=== PATIENT | female | born 1940 | race Caucasian/White ===

== ENCOUNTER 2017-01-26 11:36 | Inpatient (IN) ==
[2017-01-26] MEDS ORDERED: Acetaminophen 325 MG TABLET PO PRN (12:23)
[2017-01-26] MEDS ORDERED: 0.9 % Sodium Chloride 1,000 ML IVC SCH (12:30)
[2017-01-26 12:52] LABS: Basophils % 0.3 %; Hematocrit 38.8 % (35.3-44.9); Immature Granulocytes % 1.8 % (0-4); Lymphocytes % 26.3 %; Mean Corpuscular HGB Conc 30.9 g/dL (31.6-35.5); Mean Corpuscular Hemoglobin 29.9 pg (28.0-33.3); Mean Corpuscular Volume 96.8 fL (83.0-100.0); Mean Platelet Volume 11.1 fL (9.4-12.4); Monocytes # 0.7 K/mcL (0.0-1.3); Monocytes % 17.6 %; Neutrophils # 2.1 K/mcL (1.6-8.9); Platelet Count 143 K/mcL (140-400); Red Blood Count 4.01 M/mcL (3.82-4.97); Red Cell Distribution Width 13.9 % (11.5-14.5)
[2017-01-26 13:04] LABS: INR 1.1; Prothrombin Time 11.8 Seconds (9.4-12.1)
[2017-01-26 13:14] LABS: Alanine Aminotransferase 21 Units/L (0-55); Albumin 3.5 g/dL (3.5-5.0); Albumin/Globulin Ratio 1.3 (1.1-2.2); Alkaline Phosphatase 65 Units/L (38-126); Aspartate Amino Transferase 21 Units/L (5-34); BUN/Creatinine Ratio 15 (6-26); Bilirubin,Total 0.7 mg/dL (0.2-1.2); Blood Urea Nitrogen 12 mg/dL (7-20); Calcium 8.9 mg/dL (8.6-10.8); Carbon Dioxide 28 mEq/L (19-29); Chloride 110 mEq/L (98-109); Globulin 2.8 g/dL (2.4-3.5); Glucose 96 mg/dL (70-99); Osmolality,Calculated 296 (280-300); Sodium 143 mEq/L (136-145); Total Protein 6.3 g/dL (6.0-8.3); eGFR For African Americans > 60 (> 60); eGFR For Non-African Americans > 60 (> 60)
[2017-01-26 13:34] LABS: Carcinoembryonic Antigen 1.3 ng/mL (0-5.0)
--- NOTE | 2017-01-26 14:47 | General Surg History&Physical ---
<Kelvin Dickens - Last Filed: 01/26/17 15:46> Date of Encounter: 01/26/17 Time of Encounter: 14:47 Assessment and Plan (1) Colonic mass Current Visit: Yes Status: Acute The assessment and plan as outlined above was discussed with the patient and/or family members who expressed understanding and agreement. All questions were answered. - Symptomatic mass with constipation and bright red blood per rectum - Colonoscopy as outpatient this AM found right sided mass in colon. - Pt is scheduled for right sided hemicolectomy tomorrow evening. Consent obtained. - Clear liquids until midnight then NPO - CT abdomen/pelvis with oral and IV contrast pending - CEA level and pathology pending from colonoscopy. (2) Anxiety Current Visit: Yes Status: Acute The assessment and plan as outlined above was discussed with the patient and/or family members who expressed understanding and agreement. All questions were answered. - Pt appears calm and understanding. No complaints at this time. - Continue home celexa. History of Present Illness Chief complaint: Abnormal colonoscopy, hematochezia HPI: Ms. Dill is a 76 year old female with no significant past medical history presents to [facility] from outpatient colonoscopy office for abnormal colonoscopy results. Patient states she is been experiencing bright red blood per rectum for approximately past 4 months however she was unable to obtain a colonoscopy previous to this. Last colonoscopy was approximately 10 years ago. She denies any symptoms of nausea, vomiting, abdominal pain, diarrhea however does admit to some constipation which was partially relieved with MiraLAX and her morning coffee. She states blood per rectum was always bright red however was not present with every bowel movement. She is scheduled for open right hemicolectomy with Dr. Lewis tomorrow evening. Informed consent was obtained and all questions from patient and son, who is present at bedside, were answered. Past Med Surg Social Fam HX - Past Medical History Medical history: hyperlipidemia, venous stasis, other Psychiatric history: anxiety - Past Surgical History Surgical History: cataract, knee replacement, vascular surgery - Social History Smoking Status: Former smoker Smokeless Tobacco Status: No Alcohol use: none Drug use: none Medications and Allergies Aspirin [Lo-Dose Aspirin EC] 81 mg PO DAILY 11/18/16 [History] Citalopram [CeleXA] 20 mg PO DAILY 11/18/16 [History] Multivitamin/Iron/Folic Acid [Centrum Complete Multivit Tab] 1 each PO DAILY [History] Ascorbic Acid [Vitamin C] 250 mg PO DAILY 01/26/17 [History] Ascorbic Acid/Vitamin E/Biotin [Hair Skin Nails-Biotin Gummies] 1 tab PO DAILY 01/26/17 [History] 3 Allergy/AdvReac Type Severity Reaction Status Date / Time No Known Allergies Allergy Verified 01/26/17 09:36 Review of Systems All systems PM: A 10-system review of systems was performed and is negative for pertinent findings except as documented above in the HPI. - Constitutional no chills, no fever(s), no weight loss - Cardiovascular no chest pain, no dyspnea, no dyspnea on exertion, no lightheadedness, no pedal edema - Respiratory no cough, no dyspnea, no dyspnea on exertion - Gastrointestinal change in bowel habits, constipation, hematochezia, no abdominal pain, no change in stool character, no coffee ground emesis, no diarrhea, no early satiety, no fecal incontinence, no hematemesis, no loose stools, no melena, no nausea, no vomiting - Genitourinary Genitourinary: no dysuria - Neurological no numbness, no tingling, no weakness General Surgery Exam Initial Vital Signs Temp Pulse Resp BP Pulse Ox 97.6 F 59 18 103/57 96 01/26/17 12:22 01/26/17 12:22 01/26/17 12:22 01/26/17 12:22 01/26/17 12:22 - General physical appearance well developed, well nourished, no distress, obese - Respiratory normal expansion, normal respiratory effort, clear to auscultation - Cardiovascular Cardiovascular exam: Present: RRR, no murmurs/rubs/gallops - Abdomen Abdomen general surgery: Present: bowel sounds present, soft, non tender, masses (RLQ) - Integumentary Integumentary general surgery: Present: warm and dry, no abnormal pigmentation Results - Labs 01/26/17 12:43 01/26/17 12:43 Abnormal lab results WBC 3.9 K/mcL (4.3-11.1) L 01/26/17 12:43 MCHC 30.9 g/dL (31.6-35.5) L 01/26/17 12:43 Chloride 110 mEq/L (98-109) H 01/26/17 12:43 Diabetes panel 01/26/17 Range/Units 12:43 Sodium 143 (136-145) mEq/L Potassium 4.0 (3.5-4.5) mEq/L Chloride 110 H (98-109) mEq/L Carbon Dioxide 28 (19-29) mEq/L BUN 12 (7-20) mg/dL Creatinine 0.79 (0.57-1.11) mg/dL Glucose 96 (70-99) mg/dL Calcium 8.9 (8.6-10.8) mg/dL AST 21 (5-34) Units/L ALT 21 (0-55) Units/L Alkaline Phosphatase 65 (38-126) Units/L Albumin 3.5 (3.5-5.0) g/dL Calcium panel 01/26/17 Range/Units 12:43 Calcium 8.9 (8.6-10.8) mg/dL Albumin 3.5 (3.5-5.0) g/dL Pituitary panel 01/26/17 Range/Units 12:43 Sodium 143 (136-145) mEq/L Potassium 4.0 (3.5-4.5) mEq/L Chloride 110 H (98-109) mEq/L Carbon Dioxide 28 (19-29) mEq/L BUN 12 (7-20) mg/dL Creatinine 0.79 (0.57-1.11) mg/dL Glucose 96 (70-99) mg/dL Calcium 8.9 (8.6-10.8) mg/dL Adrenal panel 01/26/17 Range/Units 12:43 Sodium 143 (136-145) mEq/L Potassium 4.0 (3.5-4.5) mEq/L Chloride 110 H (98-109) mEq/L Carbon Dioxide 28 (19-29) mEq/L BUN 12 (7-20) mg/dL Creatinine 0.79 (0.57-1.11) mg/dL Glucose 96 (70-99) mg/dL Calcium 8.9 (8.6-10.8) mg/dL Total Bilirubin 0.7 (0.2-1.2) mg/dL AST 21 (5-34) Units/L ALT 21 (0-55) Units/L Alkaline Phosphatase 65 (38-126) Units/L Albumin 3.5 (3.5-5.0) g/dL All other labs normal. <Brian Lewis - Last Filed: 01/27/17 07:34> Date of Encounter: 01/26/17 Assessment and Plan (1) Colonic mass Current Visit: Yes Status: Acute The assessment and plan as outlined above was discussed with the patient and/or family members who expressed understanding and agreement. All questions were answered. History of Present Illness HPI: Ms. Dill is a 76 year old female Review of Systems All systems PM: A 10-system review of systems was performed and is negative for pertinent findings except as documented above in the HPI. General Surgery Exam Initial Vital Signs Temp Pulse Resp BP Pulse Ox 97.6 F 59 18 103/57 96 01/26/17 12:22 01/26/17 12:22 01/26/17 12:22 01/26/17 12:22 01/26/17 12:22 Results - Labs 01/26/17 12:43 01/26/17 12:43 Abnormal lab results WBC 3.9 K/mcL (4.3-11.1) L 01/26/17 12:43 MCHC 30.9 g/dL (31.6-35.5) L 01/26/17 12:43 Chloride 110 mEq/L (98-109) H 01/26/17 12:43 Diabetes panel 01/26/17 Range/Units 12:43 Sodium 143 (136-145) mEq/L Potassium 4.0 (3.5-4.5) mEq/L Chloride 110 H (98-109) mEq/L Carbon Dioxide 28 (19-29) mEq/L BUN 12 (7-20) mg/dL Creatinine 0.79 (0.57-1.11) mg/dL Glucose 96 (70-99) mg/dL Calcium 8.9 (8.6-10.8) mg/dL AST 21 (5-34) Units/L ALT 21 (0-55) Units/L Alkaline Phosphatase 65 (38-126) Units/L Albumin 3.5 (3.5-5.0) g/dL Calcium panel 01/26/17 Range/Units 12:43 Calcium 8.9 (8.6-10.8) mg/dL Albumin 3.5 (3.5-5.0) g/dL Pituitary panel 01/26/17 Range/Units 12:43 Sodium 143 (136-145) mEq/L Potassium 4.0 (3.5-4.5) mEq/L Chloride 110 H (98-109) mEq/L Carbon Dioxide 28 (19-29) mEq/L BUN 12 (7-20) mg/dL Creatinine 0.79 (0.57-1.11) mg/dL Glucose 96 (70-99) mg/dL Calcium 8.9 (8.6-10.8) mg/dL Adrenal panel 01/26/17 Range/Units 12:43 Sodium 143 (136-145) mEq/L Potassium 4.0 (3.5-4.5) mEq/L Chloride 110 H (98-109) mEq/L Carbon Dioxide 28 (19-29) mEq/L BUN 12 (7-20) mg/dL Creatinine 0.79 (0.57-1.11) mg/dL Glucose 96 (70-99) mg/dL Calcium 8.9 (8.6-10.8) mg/dL Total Bilirubin 0.7 (0.2-1.2) mg/dL AST 21 (5-34) Units/L ALT 21 (0-55) Units/L Alkaline Phosphatase 65 (38-126) Units/L Albumin 3.5 (3.5-5.0) g/dL All other labs normal. - Attending Attestation I examined this patient and my medical decision-making was reviewed with the Resident Physician. I agree with the documented findings, disposition and treatment plan as described except to the extent set forth below. The patient was seen and evaluated today. I personally performed colonoscopy today. She has not actively bleeding cecal mass. I obtained biopsies, however , the bleeding mass will need to be removed to stop the hemorrhage. She is admitted for right hemicolectomy. CAT scan is ordered CEA was ordered Brian Lewis MD FACS
--- NOTE | 2017-01-26 19:08 | Anesthesia Evaluation PreOp ---
Date of Encounter: 01/26/17 Time of Encounter: 19:44 - Past History Planned Operation: Right Colectomy Cardiac History: Hyperlipidemia Pulmonary History: Former smoker (quit 25 years ago) NEWS PHOTOGRAPHER History: Denies Any Significant HX Other Medical History: Denies Any Significant HX Anesthesia History: No Prior Anesthetic Complications, Past Anesthesia Alcohol Use: rarely Drug use: none Medications and Allergies Aspirin [Lo-Dose Aspirin EC] 81 mg PO DAILY 11/18/16 [History] Citalopram [CeleXA] 20 mg PO DAILY 11/18/16 [History] Multivitamin/Iron/Folic Acid [Centrum Complete Multivit Tab] 1 each PO DAILY [History] Ascorbic Acid [Vitamin C] 250 mg PO DAILY 01/26/17 [History] Ascorbic Acid/Vitamin E/Biotin [Hair Skin Nails-Biotin Gummies] 1 tab PO DAILY 01/26/17 [History] 3 Allergy/AdvReac Type Severity Reaction Status Date / Time No Known Allergies Allergy Verified 01/26/17 09:36 - Meds/Allergy Pre-op Review Medications Reviewed: Yes Allergies Reviewed: Yes Beta Blockers on Current Med List: No Anesthesia Results - Labs 01/26/17 12:43 01/26/17 12:43 - Imaging EKG: report reviewed (11/19/2016 SINUS RHYTHM WITH FREQUENT SUPRAVENTRICULAR PREMATURE COMPLEXES MARKED LEFT AXIS DEVIATION [QRS AXIS < -30] PATTERN CONSISTENT WITH PULMONARY DISEASE MODERATE INTRAVENTRICULAR CONDUCTION DELAY [ 110+ ms QRS DURATION] MODERATE VOLTAGE CRITERIA FOR LVH, CONSIDER NORMAL VARIANT [MEETS CRITERIA IN ONE OF: R(aVL), S(V1), R(V5), R(V5/V6)+S(V1)] NONSPECIFIC T-WAVE ABNORMALITY) Additional studies: 12/20/2016 Echo Impressions: LVEF 55%. Mild concentric left ventricular hypertrophy. Mild left ventricular diastolic dysfunction. Normal right ventricular structure and function. Mild mitral regurgitation. No pulmonary hypertension. There is a trivial pericardial effusion present without tamponade. Anesthesia Exam Vital Signs/O2 Sat, Most Current Temp Pulse Resp BP Pulse Ox 97.6 F 59 18 103/57 96 01/26/17 12:22 01/26/17 12:22 01/26/17 12:22 01/26/17 12:22 01/26/17 16:45 Height: 5'5''/1.65 m Weight: 193 lbs/87.7 kg Pain Scale: 0 Pain Scale Used: Numeric (1 - 10) - HEENT Pupil (Motor): EOMI Mallampati: II Teeth: Normal, Missing Denture Type: Upper: Complete Oral Opening: Greater than 3 - NEWS PHOTOGRAPHER LOC: Oriented NEWS PHOTOGRAPHER Motor: Normal RUE, Normal LUE, Normal RLE, Normal LLE, Normal Face NEWS PHOTOGRAPHER Sensory: Normal: RUE, LUE, RLE, LLE, Face - Cardiac Rhythm: Regular Murmur: None - Pulmonary Breath Sounds: bilateral Clear Respiratory Effort: Symmetrical Anesthesia Assess/Plan ASA Score: 2 Modified [place] Scale for Level of Consciousness: Cooperative, oriented, and tranquil Anesthetic Plan: General Monitoring Plan: Standard Monitors Recovery Plan: PACU
[2017-01-27] MEDS ORDERED: Pantoprazole 40 MG VIAL IVP SCH (09:00)
[2017-01-27] MEDS ORDERED: *HR* FentaNYL (PF) 100 MCG/2 ML VIAL ONE (18:42)
[2017-01-27] MEDS ORDERED: *HR* Propofol 200 MG/20 ML VIAL IVP ONE (18:43)
[2017-01-27] MEDS ORDERED: Lidocaine -MPF 2% 2 ML VIAL ONE (18:44)
[2017-01-27] MEDS ORDERED: *HR* Rocuronium Bromide 50 MG/5 ML VIAL ONE (18:44)
[2017-01-27] MEDS ORDERED: Lidocaine -MPF 4% 5 ML AMPUL ONE (18:45)
[2017-01-27] MEDS ORDERED: CefOXitin 2,000 MG VIAL ONE (19:20)
[2017-01-27] MEDS ORDERED: Neostigmine Methylsulfate 3 MG/3 ML SYRINGE ONE (20:11)
[2017-01-27] MEDS ORDERED: Dexamethasone 4 MG/ML VIAL ONE (20:11)
[2017-01-27] MEDS ORDERED: Ondansetron 4 MG/2 ML VIAL ONE (20:11)
[2017-01-27] MEDS ORDERED: *HR* Morphine 10 MG/ML VIAL ONE (20:16)
--- NOTE | 2017-01-27 20:27 | Operative Note ---
Date of procedure: 01/27/17 Pre-op diagnosis: Right colon cancer Post-op diagnosis: same Procedure: Right hemicolectomy Anesthesia: PRASHANTH Surgeon: Brian Lewis Estimated blood loss (cc): 20 Specimen: Right colon Condition: stable Disposition: PACU Procedure in Detail: After informed consent the patient was taken to the major operating suite and placed in the supine position given adequate general anesthetic. The abdomen is prepped and draped in sterile fashion utilizing ChloraPrep standard draping techniques. Timeout was taken. The patient was identified. I made a vertical midline incision and entered the abdomen. I was able to feel the tumor just above the ileocecal valve and the right colon. Mobilize the entire right colon. I divided the ileocolic ligament area I divided the colon with MORENO on the right side of the middle colic artery about penitentiary between the hepatic flexure middle colic artery. I divided the small bowel about 6 cm proximal to the ileocecal valve. The mesentery of the right colon was divided between clamps and hemostatic ligatures. Using a dirty technique feel, functional end- to-end anastomosis was created using MORENO. The resulting enterotomy was closed with a TA 60. I circumferentially reinforced the anastomosis with interrupted 3 -0 silk. I closed the opening in the mesentery with interrupted 2-0 silk. This gave an excellent technical result. Blood loss 20 mL. The colon was returned to its anatomic position. I irrigated with copious amounts of antibiotic containing solution. The midline was closed with looped 0 PDS. The skin was closed with interrupted Vicryl and skin clips. She tolerated the procedure well.
[2017-01-27] MEDS: *HR* HYDROmorphone (PF) 1 MG/ML SYRINGE IVP PRN ×2 (20:43→20:55)
[2017-01-27] MEDS: Ondansetron 4 MG/2 ML VIAL IVP PRN (20:44)
[2017-01-28] MEDS: Ondansetron 4 MG/2 ML VIAL IVP PRN (06:26)
[2017-01-28] MEDS ORDERED: *HR* HYDROmorphone (PF) 1 MG/ML SYRINGE IVP PRN ×4 (06:50→13:07)
[2017-01-28 07:00] LABS: Basophils % 0.1 %; Hematocrit 39.1 % (35.3-44.9); Hemoglobin 11.9 g/dL (11.5-15.4); Lymphocytes # 0.4 K/mcL (0.6-4.6); Lymphocytes % 2.5 %; Mean Corpuscular HGB Conc 30.4 g/dL (31.6-35.5); Mean Corpuscular Hemoglobin 29.9 pg (28.0-33.3); Mean Corpuscular Volume 98.2 fL (83.0-100.0); Mean Platelet Volume 11.1 fL (9.4-12.4); Monocytes # 2.3 K/mcL (0.0-1.3); Monocytes % 14.7 %; Neutrophils # 12.5 K/mcL (1.6-8.9); Platelet Count 133 K/mcL (140-400); Red Blood Count 3.98 M/mcL (3.82-4.97); Red Cell Distribution Width 13.8 % (11.5-14.5); Segmented Neutrophils % 81.7 %
[2017-01-28] MEDS ORDERED: *HR* Metoprolol 5 MG/5 ML VIAL IVP PRN (07:07)
[2017-01-28] MEDS ORDERED: Ondansetron 4 MG/2 ML VIAL IVP PRN ×2 (07:07)
[2017-01-28] MEDS ORDERED: *HR* OxyCODONE/APAP 5/325 TABLET PO PRN (07:07)
[2017-01-28] MEDS ORDERED: 0.9 % Sodium Chloride 1,000 ML IVC SCH (07:07)
[2017-01-28] MEDS ORDERED: Acetaminophen 325 MG TABLET PO PRN (07:07)
[2017-01-28 07:10] LABS: BUN/Creatinine Ratio 18 (6-26); Blood Urea Nitrogen 15 mg/dL (7-20); Calcium 8.7 mg/dL (8.6-10.8); Carbon Dioxide 19 mEq/L (19-29); Chloride 108 mEq/L (98-109); Glucose 176 mg/dL (70-99); Osmolality,Calculated 299 (280-300); Potassium 4.1 mEq/L (3.5-4.5); Sodium 142 mEq/L (136-145); eGFR For African Americans > 60 (> 60); eGFR For Non-African Americans > 60 (> 60)
[2017-01-28] MEDS: 0.9 % Sodium Chloride 1,000 ML IVC SCH ×2 (08:38→20:24)
[2017-01-28] MEDS: cefOXitin 2,000 MG in Water for inj. (sterile) 10 ML IVP SCH ×2 (08:40→10:09)
[2017-01-28] MEDS: *HR* Heparin 5,000 UNIT/ML VIAL SQ SCH ×2 (08:41→17:29)
[2017-01-28] MEDS: Pantoprazole 40 MG VIAL IVP SCH (08:41)
[2017-01-28] MEDS ORDERED: Pantoprazole 40 MG VIAL IVP SCH (09:00)
--- NOTE | 2017-01-28 09:29 | General Surgery Progress Note ---
<Kelvin Dickens - Last Filed: 01/28/17 10:47> Date of Encounter: 01/28/17 Time of Encounter: 09:25 - Assessment and Plan (1) Colonic mass Current Visit: Yes Status: Acute - Post operative day #1 following open right colon resection. - Minimal pain and nausea, however relived with Zofran and pain meds. - Otherwise healing well. - Bowel sounds absent, continue NPO and supportive care - No NG tube in place, will add only if pt experiences significant nausea or vomiting. - Afrebile. VSS. (2) Anxiety Current Visit: Yes Status: Acute - Well controlled. - Continue home celexa. (3) Leukocytosis Current Visit: Yes Status: Acute WBC of 15.3 this AM - This is an expected rise following surgery and reactive in nature - Will continue to monitor for now - Remainder of vitals wnl. No infectious etiology suspected at this time. Qualifiers: Leukocytosis type: unspecified Qualified Code(s): D72.829 - Elevated white blood cell count, unspecified (4) Pre-diabetes Current Visit: Yes Status: Acute - BS of 176 this AM. - Most recent A1c of 5.4%, will repeat stat - No previous diagnosis of DM - Pt is NPO following surgery. - Will start low dose SSI (5) DVT prophylaxis Current Visit: Yes Status: Acute - Heparin 5000 units subq q12hr Subjective Patient reports: no new complaints, pain is less, voiding w/o difficulty, no flatus, no bowel movement, afebrile Narrative: Ms. Dill is post operative day #1 following right colectomy for colon mass. She states she is overall feeling well. Pain is present, but manageable. She describes it as an ache. Her main concern this morning was that she wants to eat. We stressed that she could not eat until bowel sounds returned. Mild nausea without vomiting and no complaints of SOB but nursing noted desaturation during the night which responded to 3L of O2. Objective Vital Signs - Last 8 Hours Temp Pulse Resp BP Pulse Ox 01/28/17 06:40 98.2 F 102 16 111/66 95 01/28/17 03:27 98.1 F 71 17 129/69 93 01/28/17 01:50 98.5 F 68 16 125/71 86 Intake and Output 01/27/17 01/28/17 01/28/17 23:59 07:59 15:59 Intake Total 0 / 0 0 / 0 Output Total 350 / 350 Balance -20 / -20 -350 / -350 Intake: IV Fluids Mefoxin 2,000 MG In Water for inj. (sterile) 10 ML @ 150 mls/ hr IVP Q8HR [facility] Rx#:[id number] Oral 0 / 0 0 0 Output: Urine 350 / 350 Estimated Blood Loss Other: Meal Dinner NPO Weight 88.5 kg Blood Glucose* 135 171 Patient Weight 01/28/17 23:59 Weight 88.5 kg - General physical appearance well developed, well nourished, no distress - Respiratory normal expansion, normal respiratory effort, clear to auscultation - Cardiovascular Cardiovascular exam: Present: RRR, no murmurs/rubs/gallops - Abdomen Abdomen: Present: soft. Absent: bowel sounds present Abdominal Tenderness: diffusely - Incision Incision: Present: clean and dry, intact - Labs 01/28/17 06:53 01/28/17 06:53 Diabetes panel 01/28/17 Range/Units 06:53 Sodium 142 (136-145) mEq/L Potassium 4.1 (3.5-4.5) mEq/L Chloride 108 (98-109) mEq/L Carbon Dioxide 19 (19-29) mEq/L BUN 15 (7-20) mg/dL Creatinine 0.84 (0.57-1.11) mg/dL Glucose 176 H (70-99) mg/dL Calcium 8.7 (8.6-10.8) mg/dL Calcium panel 01/28/17 Range/Units 06:53 Calcium 8.7 (8.6-10.8) mg/dL Pituitary panel 01/28/17 Range/Units 06:53 Sodium 142 (136-145) mEq/L Potassium 4.1 (3.5-4.5) mEq/L Chloride 108 (98-109) mEq/L Carbon Dioxide 19 (19-29) mEq/L BUN 15 (7-20) mg/dL Creatinine 0.84 (0.57-1.11) mg/dL Glucose 176 H (70-99) mg/dL Calcium 8.7 (8.6-10.8) mg/dL Adrenal panel 01/28/17 Range/Units 06:53 Sodium 142 (136-145) mEq/L Potassium 4.1 (3.5-4.5) mEq/L Chloride 108 (98-109) mEq/L Carbon Dioxide 19 (19-29) mEq/L BUN 15 (7-20) mg/dL Creatinine 0.84 (0.57-1.11) mg/dL Glucose 176 H (70-99) mg/dL Calcium 8.7 (8.6-10.8) mg/dL - VTE Documentation of Mechanical Device: Intermittent pneumatic compression device Consult Discharge Plan - Plan Referrals: NONE,PCP [Primary Care Provider] - <Brian Lewis - Last Filed: 01/28/17 16:47> Date of Encounter: 01/28/17 - Assessment and Plan (1) Colonic mass Current Visit: Yes Status: Acute Objective Vital Signs - Last 8 Hours Temp Pulse Resp BP Pulse Ox 01/28/17 14:35 99.3 F 71 15 112/65 99 01/28/17 12:00 98.3 F 85 18 100/61 94 01/28/17 09:00 95 Intake and Output 01/28/17 01/28/17 01/28/17 07:59 15:59 23:59 Intake Total 0 / 0 10 10 Output Total 350 / 350 350 / 350 Balance -350 / -350 -340 / -340 Intake: IV Fluids Mefoxin 2,000 MG In Water for 10 10 inj. (sterile) 10 ML @ 150 mls/ hr IVP Q8HR [facility] Rx#:[id number] Oral 0 / 0 0 / 0 Output: Urine 350 / 350 350 / 350 Other: Meal Lunch NPO # Voids 1 Weight 88.5 kg Blood Glucose* 171 159 Patient Weight 01/28/17 23:59 Weight 88.5 kg - Labs 01/28/17 06:53 01/28/17 06:53 Diabetes panel 01/28/17 01/28/17 Range/Units 06:53 06:53 Sodium 142 (136-145) mEq/L Potassium 4.1 (3.5-4.5) mEq/L Chloride 108 (98-109) mEq/L Carbon Dioxide 19 (19-29) mEq/L BUN 15 (7-20) mg/dL Creatinine 0.84 (0.57-1.11) mg/dL Glucose 176 H (70-99) mg/dL Hemoglobin A1c 5.1 ( - 5.6) % Calcium 8.7 (8.6-10.8) mg/dL Calcium panel 01/28/17 Range/Units 06:53 Calcium 8.7 (8.6-10.8) mg/dL Pituitary panel 01/28/17 Range/Units 06:53 Sodium 142 (136-145) mEq/L Potassium 4.1 (3.5-4.5) mEq/L Chloride 108 (98-109) mEq/L Carbon Dioxide 19 (19-29) mEq/L BUN 15 (7-20) mg/dL Creatinine 0.84 (0.57-1.11) mg/dL Glucose 176 H (70-99) mg/dL Calcium 8.7 (8.6-10.8) mg/dL Adrenal panel 01/28/17 Range/Units 06:53 Sodium 142 (136-145) mEq/L Potassium 4.1 (3.5-4.5) mEq/L Chloride 108 (98-109) mEq/L Carbon Dioxide 19 (19-29) mEq/L BUN 15 (7-20) mg/dL Creatinine 0.84 (0.57-1.11) mg/dL Glucose 176 H (70-99) mg/dL Calcium 8.7 (8.6-10.8) mg/dL - Attending Attestation I examined this patient and my medical decision-making was reviewed with the Resident Physician. I agree with the documented findings, disposition and treatment plan as described except to the extent set forth below. The patient is seen and evaluated on morning rounds with resting. She has good pain control. No bowel sounds yet today. We will advance her diet when she develops evidence of bowel activity. Brian Lewis MD FACS
[2017-01-28] MEDS ORDERED: D5% in Water 1,000 ML IVC PRN (10:46)
[2017-01-28] MEDS ORDERED: *HR* Dextrose 50 % in Water (Syg) 50 ML SYRINGE IVP PRN (10:46)
[2017-01-28] MEDS ORDERED: Dextrose Gel 15 GM PO PRN ×2 (10:46)
[2017-01-28 11:14] LABS: Hemoglobin A1C 5.1 %
--- NOTE | 2017-01-28 11:19 | Anesthesia Evaluation Post Op ---
Date of Encounter: 01/28/17 Time of Encounter: 11:18 - Vital Signs Vital Signs: Vital Signs/O2 Sat, Most Current Temp Pulse Resp BP Pulse Ox 98.2 F 102 16 111/66 95 01/28/17 06:40 01/28/17 06:40 01/28/17 06:40 01/28/17 06:40 01/28/17 09:00 - Lungs Lungs: Clear Ascult./Percussion - Airway Airway: Non-obstructed - Cardiovascular Regular Rate - Mental Status Mental Status: Asleep with brisk response to light stimulation - Pain Pain Scale: 4 Pain Scale used: Numeric (1 - 10) - Nausea Vomiting Nausea Vomiting: Not Present - Hydration Hydration: NPO, Able to void
[2017-01-28] MEDS: Insulin LISPRO 300 UNITS/3 ML VIAL SQ SCH ×2 (12:37→17:22)
[2017-01-28] MEDS: Ketorolac 15 MG/ML VIAL IVP PRN ×2 (13:11→20:25)
[2017-01-28] MEDS ORDERED: *HR* HYDROmorphone (PF) 1 MG/ML SYRINGE IVP SCH (16:00)
[2017-01-28] MEDS ORDERED: cefOXitin 2,000 MG in Water for inj. (sterile) 10 ML IVP ONE (16:00)
[2017-01-29] MEDS: Ketorolac 15 MG/ML VIAL IVP PRN ×3 (03:40→22:33)
[2017-01-29 06:41] LABS: Hematocrit 34.5 % (35.3-44.9); Hemoglobin 10.5 g/dL (11.5-15.4); Immature Granulocytes % 1.4 % (0-4); Lymphocytes # 0.6 K/mcL (0.6-4.6); Lymphocytes % 7.5 %; Mean Corpuscular HGB Conc 30.4 g/dL (31.6-35.5); Mean Corpuscular Hemoglobin 29.9 pg (28.0-33.3); Mean Corpuscular Volume 98.3 fL (83.0-100.0); Mean Platelet Volume 11.9 fL (9.4-12.4); Monocytes # 1.7 K/mcL (0.0-1.3); Monocytes % 20.3 %; Platelet Count 103 K/mcL (140-400); Red Blood Count 3.51 M/mcL (3.82-4.97); Red Cell Distribution Width 14.2 % (11.5-14.5); Segmented Neutrophils % 70.8 %
[2017-01-29 06:50] LABS: BUN/Creatinine Ratio 27 (6-26); Blood Urea Nitrogen 20 mg/dL (7-20); Calcium 8.6 mg/dL (8.6-10.8); Carbon Dioxide 24 mEq/L (19-29); Chloride 111 mEq/L (98-109); Glucose 131 mg/dL (70-99); Magnesium 1.7 mg/dL (1.6-2.6); Osmolality,Calculated 296 (280-300); Phosphorous 1.8 mg/dL (2.3-4.7); Potassium 3.8 mEq/L (3.5-4.5); Sodium 141 mEq/L (136-145); eGFR For African Americans > 60 (> 60); eGFR For Non-African Americans > 60 (> 60)
[2017-01-29 06:56] LABS: Platelet Estimate Decreased (Normal)
[2017-01-29 06:57] LABS: Reactive Lymphocytes Present (Not Present)
[2017-01-29] MEDS: *HR* Heparin 5,000 UNIT/ML VIAL SQ SCH ×2 (06:59→17:45)
[2017-01-29] MEDS: Insulin LISPRO 300 UNITS/3 ML VIAL SQ SCH ×3 (07:32→16:47)
[2017-01-29] MEDS: Pantoprazole 40 MG VIAL IVP SCH (08:53)
[2017-01-29] MEDS: 0.9 % Sodium Chloride 1,000 ML IVC SCH (08:53)
--- NOTE | 2017-01-29 09:53 | General Surgery Progress Note ---
<Kelvin Dickens - Last Filed: 01/29/17 14:44> Date of Encounter: 01/29/17 Time of Encounter: 07:20 - Assessment and Plan (1) Colonic mass Current Visit: Yes Status: Acute - Post operative day #2 following open right colon resection. - Minimal pain and nausea, however relived with Zofran and pain meds. - Otherwise healing well. - Bowel sounds present on exam today, we will begin sips of clear liquid diet and advance as tolerated - Afrebile. VSS. - We will begin dressing changes daily (2) Anxiety Current Visit: Yes Status: Acute - Well controlled. - Continue home celexa. (3) Leukocytosis Current Visit: Yes Status: Acute Resolved. WBC of 8.4 this AM - This was an expected rise following surgery and reactive in nature - Will continue to monitor for now - Remainder of vitals wnl. No infectious etiology suspected at this time. Qualifiers: Leukocytosis type: unspecified Qualified Code(s): D72.829 - Elevated white blood cell count, unspecified (4) Pre-diabetes Current Visit: Yes Status: Acute - BS of 131 this AM. - Most recent A1c of 5.4% - No previous diagnosis of DM - Pt is allowed to clear liquids - We will continue low-dose sliding scale insulin as needed (5) Hypokalemia Current Visit: Yes Status: Acute - Likely secondary to decreased oral intake - Potassium of 3.8 this morning - Magnesium also low at 1.7 - We will replenish as necessary (6) DVT prophylaxis Current Visit: Yes Status: Acute - Heparin 5000 units subq q12hr Subjective Patient reports: no new complaints, feels better, voiding w/o difficulty, flatus , no bowel movement Narrative: Ms. Dill is postoperative day #2 following right sided colectomy for colon mass. She states she is doing very well without any complaints of nausea, vomiting, pain. She states she is very eager to eat. She is otherwise doing well. Objective Vital Signs - Last 8 Hours Temp Pulse Resp BP Pulse Ox 01/29/17 09:11 82 18 97 01/29/17 08:56 97 01/29/17 06:30 98.9 F 109 14 94/62 97 01/29/17 04:29 98.8 F 103 16 112/74 95 Intake and Output 01/28/17 01/29/17 01/29/17 23:59 07:59 15:59 Intake Total 1000 / 1000 0 / 0 900 / 900 Output Total 0 / 0 300 / 300 300 / 300 Balance 1000 / 1000 -300 / -300 600 / 600 Intake: IV Fluids 1000 / 1000 900 / 900 0.9 % Sodium Chloride 1,000 ML 1000 / 1000 900 / 900 @ 75 mls/hr IVC .[id number] [facility] Rx #:[id number] Oral 0 / 0 0 / 0 Output: Urine 0 / 0 300 / 300 300 / 300 Other: Meal npo Weight 88.5 kg Blood Glucose* 124 125 Patient Weight 01/29/17 23:59 Weight 88.5 kg - General physical appearance well developed, well nourished, no distress - Respiratory normal expansion, normal respiratory effort, clear to auscultation - Cardiovascular Cardiovascular exam: Present: RRR, no murmurs/rubs/gallops - Abdomen Abdomen: Present: bowel sounds present, soft, tender Abdominal Tenderness: RLQ, diffusely - Incision Incision: Present: clean and dry, intact - Labs 01/29/17 06:05 01/29/17 06:05 Diabetes panel 01/28/17 01/29/17 Range/Units 06:53 06:05 Sodium 141 (136-145) mEq/L Potassium 3.8 (3.5-4.5) mEq/L Chloride 111 H (98-109) mEq/L Carbon Dioxide 24 (19-29) mEq/L BUN 20 (7-20) mg/dL Creatinine 0.75 (0.57-1.11) mg/dL Glucose 131 H (70-99) mg/dL Hemoglobin A1c 5.1 ( - 5.6) % Calcium 8.6 (8.6-10.8) mg/dL Calcium panel 01/29/17 Range/Units 06:05 Calcium 8.6 (8.6-10.8) mg/dL Phosphorus 1.8 L (2.3-4.7) mg/dL Pituitary panel 01/29/17 Range/Units 06:05 Sodium 141 (136-145) mEq/L Potassium 3.8 (3.5-4.5) mEq/L Chloride 111 H (98-109) mEq/L Carbon Dioxide 24 (19-29) mEq/L BUN 20 (7-20) mg/dL Creatinine 0.75 (0.57-1.11) mg/dL Glucose 131 H (70-99) mg/dL Calcium 8.6 (8.6-10.8) mg/dL Adrenal panel 01/29/17 Range/Units 06:05 Sodium 141 (136-145) mEq/L Potassium 3.8 (3.5-4.5) mEq/L Chloride 111 H (98-109) mEq/L Carbon Dioxide 24 (19-29) mEq/L BUN 20 (7-20) mg/dL Creatinine 0.75 (0.57-1.11) mg/dL Glucose 131 H (70-99) mg/dL Calcium 8.6 (8.6-10.8) mg/dL - VTE Documentation of Mechanical Device: Intermittent pneumatic compression device Consult Discharge Plan - Plan Referrals: NONE,PCP [Primary Care Provider] - <Quang Burns - Last Filed: 01/31/17 06:52> Date of Encounter: 01/29/17 Objective Vital Signs - Last 8 Hours Temp Pulse Resp BP Pulse Ox 01/31/17 04:18 98.0 F 81 14 111/64 95 Intake and Output 01/30/17 01/30/17 01/31/17 15:59 23:59 07:59 Intake Total 1070 / 1070 295 / 295 705 / 705 Output Total 400 / 400 200 / 200 500 / 500 Balance 670 / 670 95 / 95 205 / 205 Intake: IV Fluids 950 / 950 295 / 295 705 / 705 0.9 % Sodium Chloride 1,000 ML 950 / 950 295 / 295 705 / 705 @ 75 mls/hr IVC .[id number] [facility] Rx #:[id number] Oral 120 / 120 0 / 0 0 / 0 Output: Urine 200 / 200 200 / 200 0 / 0 Urine/Stool Mix 200 / 200 500 / 500 Other: Meal Lunch Dinner Percent of Meal Consumed 0% 0% Stool Color Brown Yellow Weight 88.36 kg Patient Weight 01/31/17 23:59 Weight 88.36 kg - Labs 01/31/17 03:31 01/31/17 03:31 Diabetes panel 01/31/17 Range/Units 03:31 Sodium 143 (136-145) mEq/L Potassium 3.8 (3.5-4.5) mEq/L Chloride 114 H (98-109) mEq/L Carbon Dioxide 22 (19-29) mEq/L BUN 20 (7-20) mg/dL Creatinine 0.65 (0.57-1.11) mg/dL Glucose 119 H (70-99) mg/dL Calcium 8.5 L (8.6-10.8) mg/dL Calcium panel 01/31/17 Range/Units 03:31 Calcium 8.5 L (8.6-10.8) mg/dL Pituitary panel 01/31/17 Range/Units 03:31 Sodium 143 (136-145) mEq/L Potassium 3.8 (3.5-4.5) mEq/L Chloride 114 H (98-109) mEq/L Carbon Dioxide 22 (19-29) mEq/L BUN 20 (7-20) mg/dL Creatinine 0.65 (0.57-1.11) mg/dL Glucose 119 H (70-99) mg/dL Calcium 8.5 L (8.6-10.8) mg/dL Adrenal panel 01/31/17 Range/Units 03:31 Sodium 143 (136-145) mEq/L Potassium 3.8 (3.5-4.5) mEq/L Chloride 114 H (98-109) mEq/L Carbon Dioxide 22 (19-29) mEq/L BUN 20 (7-20) mg/dL Creatinine 0.65 (0.57-1.11) mg/dL Glucose 119 H (70-99) mg/dL Calcium 8.5 L (8.6-10.8) mg/dL - Attending Attestation I examined this patient and my medical decision-making was reviewed with the Resident Physician. I agree with the documented findings, disposition and treatment plan as described except to the extent set forth below. I reviewed the above assessment and evaluation and agree with the above plan. Will replace potassium and advance diet to clear liquids. Continue with out of bed and ambulation.
[2017-01-29] MEDS ORDERED: Magnesium Sulfate 1 GM in D5% in Water 100 ML IVPB ONE (14:48)
[2017-01-30] MEDS: 0.9 % Sodium Chloride 1,000 ML IVC SCH ×2 (02:55→12:56)
[2017-01-30 04:21] LABS: BUN/Creatinine Ratio 26 (6-26); Blood Urea Nitrogen 19 mg/dL (7-20); Calcium 9.4 mg/dL (8.6-10.8); Carbon Dioxide 23 mEq/L (19-29); Chloride 112 mEq/L (98-109); Glucose 131 mg/dL (70-99); Magnesium 1.9 mg/dL (1.6-2.6); Osmolality,Calculated 298 (280-300); Potassium 3.8 mEq/L (3.5-4.5); Sodium 142 mEq/L (136-145); eGFR For African Americans > 60 (> 60); eGFR For Non-African Americans > 60 (> 60)
[2017-01-30] MEDS: *HR* Heparin 5,000 UNIT/ML VIAL SQ SCH ×2 (06:04→17:08)
[2017-01-30] MEDS: Insulin LISPRO 300 UNITS/3 ML VIAL SQ SCH ×3 (09:57→16:13)
[2017-01-30] MEDS: Pantoprazole 40 MG VIAL IVP SCH (10:17)
--- NOTE | 2017-01-30 10:25 | General Surgery Progress Note ---
<Kelvin Dickens - Last Filed: 01/30/17 14:09> Date of Encounter: 01/30/17 Time of Encounter: 09:10 - Assessment and Plan (1) Colonic mass Current Visit: Yes Status: Acute - Post operative day #3, following open right colon resection. - Minimal pain and nausea, however relived with Zofran and pain meds. - Otherwise healing well. - Tolerating clear liquids without complaint. Will advance to full liquid. - Afrebile. VSS. - We will begin dressing changes daily (2) Anxiety Current Visit: Yes Status: Acute - Well controlled. - Continue home celexa. (3) Leukocytosis Current Visit: Yes Status: Resolved Resolved. - This was an expected rise following surgery and reactive in nature - Will continue to monitor for now - Remainder of vitals wnl. No infectious etiology suspected at this time. Qualifiers: Leukocytosis type: unspecified Qualified Code(s): D72.829 - Elevated white blood cell count, unspecified (4) Pre-diabetes Current Visit: Yes Status: Acute - BS of 131 this AM. - Most recent A1c of 5.4% - No previous diagnosis of DM - Pt is allowed full liquids - We will continue low-dose sliding scale insulin as needed (5) Hypokalemia Current Visit: Yes Status: Acute - Likely secondary to decreased oral intake - Potassium of 3.8 this morning - Magnesium also low at 1.9 - We will monitor with addition of full liquid diet. (6) DVT prophylaxis Current Visit: Yes Status: Acute - Heparin 5000 units subq q12hr Subjective Patient reports: no new complaints, feels better, pain is less, tolerating liquids well, flatus, bowel movement Narrative: Patient was seen and examined at bedside this morning. She states that overall she has feeling better from yesterday. She states she is passing gas and had one liquid bowel movement last evening. Her diet was advanced to sips of clear liquids yesterday which she states have been going well. She states that she has been taking it slow drinking ice chips and orange juice yesterday without any complaints of nausea, vomiting. Pain is well controlled at this time with only minimal tenderness to palpation of the right lower quadrant. Objective Vital Signs - Last 8 Hours Temp Pulse Resp BP Pulse Ox 01/30/17 07:15 98.4 F 106 16 127/68 93 Intake and Output 12/09/17 12/10/17 12/10/17 23:59 07:59 15:59 Intake Total 940 / 940 600 / 600 0 / 0 Output Total 525 / 525 500 / 500 Balance 415 / 415 100 / 100 0 / 0 Intake: IV Fluids 700 / 700 600 / 600 0.9 % Sodium Chloride 1,000 ML 400 / 400 600 / 600 @ 75 mls/hr IVC .[id number] [facility] Rx #:[id number] Potassium Chloride 10 mEq/100mL 300 / 300 10 meq In 100 ml @ 100 mls/hr IVPB Q1H [facility] Rx#:[id number] Oral 240 / 240 0 / 0 0 / 0 Output: Urine 525 / 525 100 / 100 Stool 200 / 200 Emesis 200 / 200 Other: Meal Breakfast Percent of Meal Consumed 0% Stool Consistency liquid Stool Color Brown Weight 88.36 kg Blood Glucose* 127 Patient Weight 01/30/17 23:59 Weight 88.36 kg - General physical appearance well developed, well nourished, no distress - Respiratory normal expansion, normal respiratory effort, clear to auscultation - Cardiovascular Cardiovascular exam: Present: RRR, no murmurs/rubs/gallops - Abdomen Abdomen: Present: bowel sounds present, soft, tender Abdominal Tenderness: RLQ - Incision Incision: Present: clean and dry, intact - Labs 01/29/17 06:05 01/30/17 03:33 Diabetes panel 01/30/17 Range/Units 03:33 Sodium 142 (136-145) mEq/L Potassium 3.8 (3.5-4.5) mEq/L Chloride 112 H (98-109) mEq/L Carbon Dioxide 23 (19-29) mEq/L BUN 19 (7-20) mg/dL Creatinine 0.72 (0.57-1.11) mg/dL Glucose 131 H (70-99) mg/dL Calcium 9.4 (8.6-10.8) mg/dL Calcium panel 01/30/17 Range/Units 03:33 Calcium 9.4 (8.6-10.8) mg/dL Pituitary panel 01/30/17 Range/Units 03:33 Sodium 142 (136-145) mEq/L Potassium 3.8 (3.5-4.5) mEq/L Chloride 112 H (98-109) mEq/L Carbon Dioxide 23 (19-29) mEq/L BUN 19 (7-20) mg/dL Creatinine 0.72 (0.57-1.11) mg/dL Glucose 131 H (70-99) mg/dL Calcium 9.4 (8.6-10.8) mg/dL Adrenal panel 01/30/17 Range/Units 03:33 Sodium 142 (136-145) mEq/L Potassium 3.8 (3.5-4.5) mEq/L Chloride 112 H (98-109) mEq/L Carbon Dioxide 23 (19-29) mEq/L BUN 19 (7-20) mg/dL Creatinine 0.72 (0.57-1.11) mg/dL Glucose 131 H (70-99) mg/dL Calcium 9.4 (8.6-10.8) mg/dL - VTE Documentation of Mechanical Device: Intermittent pneumatic compression device Consult Discharge Plan - Plan Referrals: NONE,PCP [Primary Care Provider] - <Quang Burns - Last Filed: 01/31/17 06:54> Date of Encounter: 01/30/17 Objective Vital Signs - Last 8 Hours Temp Pulse Resp BP Pulse Ox 01/31/17 04:18 98.0 F 81 14 111/64 95 Intake and Output 01/30/17 01/30/17 01/31/17 15:59 23:59 07:59 Intake Total 1070 / 1070 295 / 295 705 / 705 Output Total 400 / 400 200 / 200 500 / 500 Balance 670 / 670 95 / 95 205 / 205 Intake: IV Fluids 950 / 950 295 / 295 705 / 705 0.9 % Sodium Chloride 1,000 ML 950 / 950 295 / 295 705 / 705 @ 75 mls/hr IVC .[id number] [facility] Rx #:[id number] Oral 120 / 120 0 / 0 0 / 0 Output: Urine 200 / 200 200 / 200 0 / 0 Urine/Stool Mix 200 / 200 500 / 500 Other: Meal Lunch Dinner Percent of Meal Consumed 0% 0% Stool Color Brown Yellow Weight 88.36 kg Patient Weight 01/31/17 23:59 Weight 88.36 kg - Labs 01/31/17 03:31 01/31/17 03:31 Diabetes panel 01/31/17 Range/Units 03:31 Sodium 143 (136-145) mEq/L Potassium 3.8 (3.5-4.5) mEq/L Chloride 114 H (98-109) mEq/L Carbon Dioxide 22 (19-29) mEq/L BUN 20 (7-20) mg/dL Creatinine 0.65 (0.57-1.11) mg/dL Glucose 119 H (70-99) mg/dL Calcium 8.5 L (8.6-10.8) mg/dL Calcium panel 01/31/17 Range/Units 03:31 Calcium 8.5 L (8.6-10.8) mg/dL Pituitary panel 01/31/17 Range/Units 03:31 Sodium 143 (136-145) mEq/L Potassium 3.8 (3.5-4.5) mEq/L Chloride 114 H (98-109) mEq/L Carbon Dioxide 22 (19-29) mEq/L BUN 20 (7-20) mg/dL Creatinine 0.65 (0.57-1.11) mg/dL Glucose 119 H (70-99) mg/dL Calcium 8.5 L (8.6-10.8) mg/dL Adrenal panel 01/31/17 Range/Units 03:31 Sodium 143 (136-145) mEq/L Potassium 3.8 (3.5-4.5) mEq/L Chloride 114 H (98-109) mEq/L Carbon Dioxide 22 (19-29) mEq/L BUN 20 (7-20) mg/dL Creatinine 0.65 (0.57-1.11) mg/dL Glucose 119 H (70-99) mg/dL Calcium 8.5 L (8.6-10.8) mg/dL - Attending Attestation I examined this patient and my medical decision-making was reviewed with the Resident Physician. I agree with the documented findings, disposition and treatment plan as described except to the extent set forth below. I reviewed the above assessment and evaluation and agree with the above plan. Advance diet to full liquids. If tolerates consider soft food for a.m. and possible DC planning.
[2017-01-30] MEDS ORDERED: *HR* HYDROcodone/Acet 5/325 mg TABLET PO PRN (11:21)
[2017-01-30] MEDS: Ketorolac 15 MG/ML VIAL IVP PRN (20:46)
[2017-01-31 03:59] LABS: Basophils % 0.1 %; Eosinophils # 0.1 K/mcL (0.0-0.6); Eosinophils % 1.3 %; Hematocrit 36.2 % (35.3-44.9); Hemoglobin 10.9 g/dL (11.5-15.4); Immature Granulocytes % 1.4 % (0-4); Lymphocytes # 0.7 K/mcL (0.6-4.6); Lymphocytes % 9.3 %; Mean Corpuscular HGB Conc 30.1 g/dL (31.6-35.5); Mean Corpuscular Hemoglobin 29.6 pg (28.0-33.3); Mean Corpuscular Volume 98.4 fL (83.0-100.0); Mean Platelet Volume 11.8 fL (9.4-12.4); Monocytes # 1.2 K/mcL (0.0-1.3); Monocytes % 16.9 %; Neutrophils # 5.1 K/mcL (1.6-8.9); Platelet Count 127 K/mcL (140-400); Red Blood Count 3.68 M/mcL (3.82-4.97); Red Cell Distribution Width 14.1 % (11.5-14.5)
[2017-01-31 04:12] LABS: BUN/Creatinine Ratio 31 (6-26); Blood Urea Nitrogen 20 mg/dL (7-20); Calcium 8.5 mg/dL (8.6-10.8); Carbon Dioxide 22 mEq/L (19-29); Chloride 114 mEq/L (98-109); Glucose 119 mg/dL (70-99); Osmolality,Calculated 300 (280-300); Potassium 3.8 mEq/L (3.5-4.5); Sodium 143 mEq/L (136-145); eGFR For African Americans > 60 (> 60); eGFR For Non-African Americans > 60 (> 60)
[2017-01-31] MEDS: 0.9 % Sodium Chloride 1,000 ML IVC SCH (05:56)
[2017-01-31] MEDS: *HR* Heparin 5,000 UNIT/ML VIAL SQ SCH (05:57)
[2017-01-31] MEDS: Insulin LISPRO 300 UNITS/3 ML VIAL SQ SCH ×2 (08:48→11:01)
[2017-01-31] MEDS: Pantoprazole 40 MG VIAL IVP SCH (08:54)
[2017-01-31 11:30] VITALS: BP 112/70
--- NOTE | 2017-01-31 14:17 | Discharge Summary ---
Date of Encounter: 01/31/17 Time of Encounter: 06:45 - Discharge Diagnosis (1) Colonic mass Priority: Primary Status: Acute (2) Anxiety Priority: Secondary Status: Acute (3) Leukocytosis Priority: Secondary Status: Resolved Qualifiers: Leukocytosis type: unspecified Qualified Code(s): D72.829 - Elevated white blood cell count, unspecified (4) Pre-diabetes Priority: Secondary Status: Acute (5) Hypokalemia Priority: Secondary Status: Acute (6) DVT prophylaxis Priority: Secondary Status: Acute - Discharge Medications Prescriptions: HYDROcodone/Acet 5/325 mg [[place] 5-325 mg] 1 tab PO Q6HR PRN #28 tablet PRN Reason: pain 1-5 Ibuprofen 400 mg PO Q6HR PRN #28 tablet PRN Reason: Pain Docusate [Colace] 100 mg PO DAILY #7 capsule Home Medications: Aspirin [Lo-Dose Aspirin EC] 81 mg PO DAILY 11/18/16 [History] Citalopram [CeleXA] 20 mg PO DAILY 11/18/16 [History] Multivitamin/Iron/Folic Acid [Centrum Complete Multivit Tab] 1 each PO DAILY [History] Ascorbic Acid [Vitamin C] 250 mg PO DAILY 01/26/17 [History] Ascorbic Acid/Vitamin E/Biotin [Hair Skin Nails-Biotin Gummies] 1 tab PO DAILY 01/26/17 [History] Docusate [Colace] 100 mg PO DAILY #7 capsule 01/31/17 [Rx] HYDROcodone/Acet 5/325 mg [[place] 5-325 mg] 1 tab PO Q6HR PRN #28 tablet [Rx] Ibuprofen 400 mg PO Q6HR PRN #28 tablet 01/31/17 [Rx] Allergies/Adverse Reactions: 3 Allergy/AdvReac Type Severity Reaction Status Date / Time No Known Allergies Allergy Verified 01/26/17 09:36 General Surgery Exam Initial Vital Signs Temp Pulse Resp BP Pulse Ox 97.6 F 59 18 103/57 96 01/26/17 12:22 01/26/17 12:22 01/26/17 12:22 01/26/17 12:22 01/26/17 12:22 - General physical appearance well developed, well nourished, no distress - Respiratory normal expansion, normal respiratory effort, clear to auscultation - Cardiovascular Cardiovascular exam: Present: RRR, no murmurs/rubs/gallops - Abdomen Abdomen general surgery: Present: bowel sounds present, soft, non tender. Absent: distended - Incision Incision: Present: clean and dry, intact. Absent: indurated, serous, serosanguinous Date of admission: 01/26/17 13:24 Primary care physician: PCP NONE Consults: 01/26/17 15:58 Consult to Director Of Respiratory Therapy [CONS] Routine Reason for SW Consult: POA questions and forms 01/28/17 12:26 Consult to Occupational Therapy [CONS] Routine Comment: Evaluate, develop and implement POC Reason for Consult: Mobilization and DC planning Consult to Physical Therapy [CONS] Routine Comment: Evaluate, develop and implement POC Reason for Consult: Mobilization and D/C planning Discharging clinician: Kelvin Dickens Anticipated date of discharge: 01/31/17 - Patient Status Disposition: Home, Self-Care Condition: Fair Functional capacity at discharge: independent ambulation Overall status at discharge: patient is progressing back to baseline - Discharge Instructions Follow Up With: Brian Lewis MD [Partnered Physician] - 02/11/17 10:00 am Bereket Dukes MD [Partnered Physician] - NONE,PCP [Primary Care Provider] - Additional Instructions: 1. No pushing, pulling, or lifting greater than 15 lbs for four weeks. 2. You may shower beginning today, but no tub baths, soaking, or swimming for 2 weeks. 3. Take ibuprofen every 8 hours if needed for discomfort. If this does not relieve the discomfort you may take oxycodone. 4. Take narcotics as directed. Do not take more narcotics then directed and do not share your narcotics with any other person. Do not drink alcohol while on narcotics. 5. Take stool softeners (Colace) or a water based laxative (Miralax) while taking narcotics. You may hold for loose stools. 6. Report any fevers greater than 100.5F, increase abdominal discomfort, drainage that looks like pus, increased redness or pain at the surgical site, or any vomiting. 7. Report any pain in the calves, shortness of breath, or rapid heartbeat. 8. Follow-up in the office as directed. 9. If you were prescribed antibiotics, do not stop them without talking to your provider. - Diet and Activity Activity: increase activity as tolerated, resume usual activities as tolerated Diet: advance to your usual diet - Hospital Course Hospital course: Ms. Dill is a 76 year old female who underwent open right sided colon resection for colon mass found on colonoscopy. She tolerated the procedure well. During the course of her hospital stay, she gradually improved. Vital signs were unremarkable. Labs during her stay were closely monitored and revealed hypokalemia and hypomagnesemia which were treated with supplemental infusions. Her diet was gradually increased once bowel functions returned. On day of discharge, vital signs were stable, labs were back to baseline levels, and she was tolerating a full diet without complaints. She had flatus, bowel movements, and denied any nausea, vomiting, pain. 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 All of her questions were answered and she will be discharged home. She was instructed to follow up with Dr. Lewis with her already scheduled appointment. - Time Spent with Patient Total time spent providing and/or coordinating discharge services: Labs on day of discharge: Labs from last 24 hours 01/31/17 01/31/17 01/31/17 03:31 03:31 03:31 WBC 7.1 RBC 3.68 L Hgb 10.9 L Hct 36.2 MCV 98.4 MCH 29.6 MCHC 30.1 L RDW 14.1 Plt Count 127 L MPV 11.8 Immature Gran % 1.4 Seg Neutrophils % 71.0 Lymphocytes % 9.3 Monocytes % 16.9 Eosinophils % 1.3 Basophils % 0.1 Neutrophils # 5.1 Lymphocytes # 0.7 Monocytes # 1.2 Eosinophils # 0.1 Basophils # 0.0 Sodium 143 Potassium 3.8 Chloride 114 H Carbon Dioxide 22 BUN 20 Creatinine 0.65 Est GFR ( Amer) > 60 Est GFR (Non-Af Amer) > 60 BUN/Creatinine Ratio 31 H Glucose 119 H Calculated Osmolality 300 Calcium 8.5 L Magnesium 1.7 - Impressions ITS Impressions Abdomen/Pelvis CT 01/26/17 14:45 IMPRESSION: 1. Mild eccentric wall thickening at the ascending colon, which could correspond to the reported colonic mass or be artifactual related to spasm/incomplete distention. No other focal wall thickening or discrete colonic mass is identified. If available, correlation with colonoscopy is recommended. 2. No evidence of metastatic disease in the abdomen or pelvis. 3. Simple hepatic and renal cysts, which do not require any additional workup. D/ / 01/26/2017 15:23:20 Caty Alvarado / mar Interpreting Provider: Caty Alvarado
== END 2017-01-31 15:24 | disposition home or self-care (01) | DRG 331 ==
LOC: 3ANU
PROVIDERS: ADMIT Surgery; ATTEND Surgery

== ENCOUNTER 2020-08-09 18:57 | Observation (INO) ==
[2020-08-09] MEDS ORDERED: *HR* Atropine Sulfate 1 MG/10 ML SYRINGE IVP ONE (19:13)
[2020-08-09 19:37] LABS: Basophils % 0.2 %; Eosinophils % 0.4 %; Immature Granulocytes % 0.7 % (0-4); Mean Corpuscular Hemoglobin 30.2 pg (28.0-33.3); Red Cell Distribution Width 12.8 % (11.5-14.5)
[2020-08-09 19:39] LABS: Hematocrit 37.1 % (35.3-44.9); Hemoglobin 11.7 g/dL (11.5-15.4); Immature Platelets 7.3 % (1.1-6.1); Lymphocytes # 1.7 K/mcL (0.6-4.6); Lymphocytes % 30.2 %; Mean Corpuscular HGB Conc 31.5 g/dL (31.6-35.5); Mean Corpuscular Volume 95.6 fL (83.0-100.0); Monocytes # 0.9 K/mcL (0.0-1.3); Monocytes % 15.9 %; Neutrophils # 2.9 K/mcL (1.6-8.9); Platelet Count 119 K/mcL (140-400); Red Blood Count 3.88 M/mcL (3.82-4.97); Segmented Neutrophils % 52.6 %; White Blood Count 5.5 K/mcL (4.3-11.1)
[2020-08-09 19:44] LABS: INR 1.2
[2020-08-09 19:47] LABS: Activated Partial Thrombo Time 30.2 Seconds (26.0-36.0)
[2020-08-09 19:59] LABS: BUN/Creatinine Ratio 22 (6-26); Blood Urea Nitrogen 21 mg/dL (8-23); Calcium 9.3 mg/dL (8.6-10.3); Carbon Dioxide 25 mEq/L (23-29); Chloride 106 mEq/L (98-107); Glucose 139 mg/dL (70-105); Magnesium 1.9 mg/dL (1.6-2.6); Osmolality,Calculated 293 (280-300); Potassium 3.8 mEq/L (3.5-5.1); Sodium 139 mEq/L (136-145); eGFR For African Americans > 60 (> 60); eGFR For Non-African Americans 57 (> 60)
[2020-08-09 20:01] LABS: Troponin I < 0.03 ng/mL (< 0.04)
[2020-08-09 20:05] LABS: Platelet Estimate Slight Decrease (Normal)
[2020-08-09 20:14] LABS: Thyroid Stimulating Hormone 2.907 mcIU/mL (0.340-5.600)
[2020-08-09] MEDS ORDERED: Acetaminophen 325 MG TABLET PO PRN (21:41)
[2020-08-09] MEDS ORDERED: Naloxone 0.4 MG/ML INJ IVP PRN (21:41)
[2020-08-09] MEDS ORDERED: Ondansetron ODT 4 MG TAB.RAPDIS SL PRN (21:41)
[2020-08-09] MEDS ORDERED: Perflutren Lipid Microsphere 1.3 ML in 0.9 % Sodium Chloride 8.7 ML IVP PRN (21:46)
[2020-08-09] MEDS: Apixaban 5 MG TABLET PO SCH (23:28)
[2020-08-10 04:48] LABS: Basophils % 0.2 %; Eosinophils % 0.4 %; Hematocrit 36.4 % (35.3-44.9); Hemoglobin 11.1 g/dL (11.5-15.4); Immature Granulocytes % 0.8 % (0-4); Immature Platelets 7.2 % (1.1-6.1); Lymphocytes # 1.9 K/mcL (0.6-4.6); Lymphocytes % 37.9 %; Mean Corpuscular HGB Conc 30.5 g/dL (31.6-35.5); Mean Corpuscular Hemoglobin 29.8 pg (28.0-33.3); Mean Corpuscular Volume 97.8 fL (83.0-100.0); Mean Platelet Volume 12.1 fL (9.4-12.4); Monocytes # 0.8 K/mcL (0.0-1.3); Monocytes % 15.9 %; Neutrophils # 2.2 K/mcL (1.6-8.9); Red Blood Count 3.72 M/mcL (3.82-4.97); Red Cell Distribution Width 12.6 % (11.5-14.5); Segmented Neutrophils % 44.8 %
[2020-08-10 04:51] LABS: Platelet Count 97 K/mcL (140-400)
[2020-08-10 05:03] LABS: BUN/Creatinine Ratio 21 (6-26); Blood Urea Nitrogen 17 mg/dL (8-23); Calcium 8.9 mg/dL (8.6-10.3); Carbon Dioxide 28 mEq/L (23-29); Chloride 109 mEq/L (98-107); Glucose 117 mg/dL (70-105); Magnesium 1.9 mg/dL (1.6-2.6); Osmolality,Calculated 295 (280-300); Potassium 4.5 mEq/L (3.5-5.1); Sodium 141 mEq/L (136-145); eGFR For African Americans > 60 (> 60); eGFR For Non-African Americans > 60 (> 60)
[2020-08-10 05:11] LABS: INR 1.3; Prothrombin Time 14.8 Seconds (9.4-12.1)
[2020-08-11 06:30] LABS: Basophils % 0.4 %; Eosinophils % 0.4 %; Hematocrit 38.7 % (35.3-44.9); Hemoglobin 12.4 g/dL (11.5-15.4); Immature Granulocytes % 0.8 % (0-4); Lymphocytes # 1.7 K/mcL (0.6-4.6); Lymphocytes % 34.4 %; Mean Corpuscular Hemoglobin 30.5 pg (28.0-33.3); Mean Corpuscular Volume 95.3 fL (83.0-100.0); Mean Platelet Volume 12.5 fL (9.4-12.4); Monocytes # 0.9 K/mcL (0.0-1.3); Monocytes % 17.2 %; Neutrophils # 2.4 K/mcL (1.6-8.9); Platelet Count 108 K/mcL (140-400); Red Blood Count 4.06 M/mcL (3.82-4.97); Red Cell Distribution Width 12.5 % (11.5-14.5); Segmented Neutrophils % 46.8 %; White Blood Count 5.1 K/mcL (4.3-11.1)
[2020-08-11 06:32] LABS: INR 1.1; Prothrombin Time 12.9 Seconds (9.4-12.1)
[2020-08-11 06:55] LABS: BUN/Creatinine Ratio 21 (6-26); Blood Urea Nitrogen 15 mg/dL (8-23); Calcium 8.8 mg/dL (8.6-10.3); Carbon Dioxide 24 mEq/L (23-29); Chloride 108 mEq/L (98-107); Glucose 116 mg/dL (70-105); Magnesium 1.8 mg/dL (1.6-2.6); Osmolality,Calculated 292 (280-300); Potassium 3.9 mEq/L (3.5-5.1); Sodium 140 mEq/L (136-145); eGFR For African Americans > 60 (> 60); eGFR For Non-African Americans > 60 (> 60)
[2020-08-11] MEDS ORDERED: Clindamycin 900 MG/50 ML 900 MG/50 ML IV.SOLN IVPB ONE ×2 (11:38→16:38)
[2020-08-11] MEDS ORDERED: 0.9 % Sodium Chloride 2,000 ML ONE (13:43)
[2020-08-11] MEDS ORDERED: Clindamycin 600 MG/50 ML 1,200 MG/100 ML IV.SOLN IVPB ONE (13:43)
[2020-08-11] MEDS ORDERED: *HR* FentaNYL (PF) 100 MCG/2 ML VIAL ONE (14:07)
[2020-08-11] MEDS ORDERED: *HR* Midazolam HCl 2 MG/2 ML VIAL ONE (14:07)
[2020-08-11] MEDS ORDERED: Ondansetron ODT 4 MG TAB.RAPDIS SL PRN (16:38)
[2020-08-11] MEDS ORDERED: Acetaminophen 325 MG TABLET PO PRN (16:38)
[2020-08-11] MEDS ORDERED: Naloxone 0.4 MG/ML INJ IVP PRN (16:38)
[2020-08-11] MEDS ORDERED: Clindamycin 900 MG/50 ML 900 MG/50 ML IV.SOLN IVPB SCH (18:00)
[2020-08-12] MEDS ORDERED: Clindamycin 900 MG/50 ML 900 MG/50 ML IV.SOLN IVPB SCH (02:00)
[2020-08-12 06:37] LABS: VBG Ionized Calcium 1.19 mmol/L (1.15-1.35)
[2020-08-12 06:38] LABS: Eosinophils % 0.4 %; Hematocrit 38.6 % (35.3-44.9); Immature Granulocytes % 1.2 % (0-4); Lymphocytes # 1.1 K/mcL (0.6-4.6); Lymphocytes % 21.5 %; Mean Corpuscular HGB Conc 31.1 g/dL (31.6-35.5); Mean Corpuscular Volume 96.5 fL (83.0-100.0); Mean Platelet Volume 11.9 fL (9.4-12.4); Monocytes # 1.1 K/mcL (0.0-1.3); Monocytes % 21.5 %; Neutrophils # 2.8 K/mcL (1.6-8.9); Platelet Count 101 K/mcL (140-400); Red Cell Distribution Width 12.7 % (11.5-14.5); Segmented Neutrophils % 55.4 %
[2020-08-12 07:01] LABS: Alanine Aminotransferase 13 Units/L (7-52); Albumin 3.9 g/dL (3.5-5.7); Albumin/Globulin Ratio 1.6 (1.1-2.2); Alkaline Phosphatase 53 Units/L (34-104); Aspartate Amino Transferase 13 Units/L (13-39); BUN/Creatinine Ratio 15 (6-26); Bilirubin,Total 0.9 mg/dL (0.3-1.0); Blood Urea Nitrogen 11 mg/dL (8-23); Calcium 9.1 mg/dL (8.6-10.3); Carbon Dioxide 27 mEq/L (23-29); Chloride 106 mEq/L (98-107); Globulin 2.4 g/dL (2.4-3.5); Glucose 123 mg/dL (70-105); Magnesium 1.7 mg/dL (1.6-2.6); Osmolality,Calculated 289 (280-300); Phosphorous 3.8 mg/dL (2.7-4.5); Potassium 3.9 mEq/L (3.5-5.1); Sodium 139 mEq/L (136-145); Total Protein 6.3 g/dL (6.4-8.9); eGFR For African Americans > 60 (> 60); eGFR For Non-African Americans > 60 (> 60)
[2020-08-12] MEDS: Apixaban 5 MG TABLET PO SCH (07:12)
[2020-08-12 07:22] LABS: Anisocytosis 1+ (Not Present); Platelet Estimate Slight Decrease (Normal)
[2020-08-12 10:50] VITALS: BP 145/75
== END 2020-08-12 11:29 | disposition home or self-care (01) ==
LOC: EMEROOARM 18:57 → ICNU 18:57 → SUATTDRO 21:01 → ICNU 21:20 → 2ANU 08-11 17:10
PROVIDERS: ADMIT Student in an Organized Health Care Education/Training Program; ATTEND Family Medicine